=== PATIENT | male | born 1935 | race Caucasian/White ===

== ENCOUNTER 2017-07-19 05:29 | Inpatient (IN) | payer MEDICARE ==
[2017-07-19 06:03] LABS: #Basophils 0.1 thou/uL (0.0-0.2); #Lymphocytes 0.1 thou/uL (1.20-3.40); #Monocytes 0.1 thou/uL (0.11-0.59); #Neutrophils 7.2 thou/uL (1.40-6.50); %Basophils 0.8 % (0.0-1.0); %Eosinophils 0.4 % (0.0-10.0); %Lymphocytes 1.4 % (21.0-51.0); %Monocytes 1.7 % (0.0-10.0); %Neutrophils 95.7 % (42.0-75.0); Hemoglobin 10.4 g/dL (14.0-18.0); Mean Corpuscular HGB CONC 32.5 g/dL (32.0-36.0); Mean Corpuscular Hemoglobin 31.1 pg (27.0-31.0); Mean Corpuscular Volume 95.6 fl (80.0-94.0); Mean Platelet Volume 6.8 fL (7.4-10.4); Platelet Count 200 thou/uL (130-400); RBC Distribution Width 14.8 % (11.5-14.5); Red Blood Cell (RBC) Count 3.34 mill/uL (4.70-6.10); White Blood Cell (WBC) Count 7.5 thou/uL (4.8-10.8)
[2017-07-19 06:10] LABS: Actual Bicarbonate (HCO3a) 30.9 mEq/L (22-26); Base Excess (BEa) 7.1 mEq/L (0 (+/-) 2.5); CO2 Tension 40.6 mmHg (35.0-45.0); Hematocrit-ABG 28.2 % (42.0-52.0); Hemoglobin (Hb) 8.5 g/dL (14.0-18.0); O2 Tension (PaO2) 100.7 mmHg (80.0-100.0)
[2017-07-19 06:11] LABS: Analyzer IN Cardio ER; Calcium, Ionized 1.1 mmol/L (1.12-1.30); Puncture Site RRA
[2017-07-19 06:19] LABS: ALT (SGPT) 19 U/L (8-55); AST (SGOT) 27 U/L (5-34); Albumin 3.5 g/dL (3.4-4.8); Alkaline Phosphatase 119 U/L (40-150); Anion Gap 13 mmol/L (10-20); BUN (Urea Nitrogen) 22 mg/dL (8.4-25.7); Bilirubin, Total 0.9 mg/dL (0.2-1.2); CK (CPK) 65 U/L (30-200); Calc. Creatinine Clearance 0 mL/min (70-130); Calcium 9.4 mg/dL (7.8-10.44); Carbon Dioxide 31 mmol/L (23-31); Chloride 97 mmol/L (98-107); Estimated GFR-MDRD 21; Globulin 3.2 g/dL (2.4-3.5); Glucose 79 mg/dL (83-110); Lipase 21 U/L (8-78); Potassium 4.4 mmol/L (3.5-5.1); Protein, Total 6.7 g/dL (5.8-8.1); Sodium 137 mmol/L (136-145)
[2017-07-19 06:23] LABS: CKMB 1.5 ng/mL (0-6.6)
--- NOTE | 2017-07-19 07:37 | PDOC.FPRHP ---
- History of Present Illness Chief Complaint: SOB History of Present Illness: 82 yo CM presented to ED for SOB. Pt awoke at 0200 from sleep c/o SOB. Endorses some SOB at baseline with occasional nighttime awakenings, but this felt worse. Was in normal state of health prior to going to sleep except for a cough. Coughed up pinkish phlegm 5 minutes before ambulance showed up. Pt went to dialysis yesterday with removal of 1.2 kg per pt. Taking all his meds at home except anxiety and nausea med that he does not currently have. Does not require oxygen at home. States BP checked at dialysis and usually runs 140-190s systolic with higher pressures more typical. Currently, states SOB much improved on oxygen. Endorses ECHO within last year in [place]. PCP: Dr. 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 Code status: Full code ED Course: Bipap via ambulance; transitioned to 3L O2 nasal cannula in ED. 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 Daughter - DM, HTN, HLD Social: Former smoker (30-45 pack-yr hx) quit 13 yrs ago, occasional alcohol use , denies illicit drug use - Review of Systems General: reports: fatigue (No more than normal). denies: fever/chills Eyes: denies: vision changes ENT: denies: nasal congestion, rhinorrhea Respiratory: reports: cough (Blood tinged sputum), shortness of breath, exercise intolerance Cardiovascular: reports: edema (b/l LE), orthopnea. denies: chest pain, palpitation Gastrointestinal: denies: nausea, vomiting Skin: denies: rashes Musculoskeletal: denies: pain, tenderness Neurological: denies: numbness, syncope - Vital signs BP: 214/110 w/EMS 141/47 in ED HR: 87 RR: 16 Tmax: 98.3 Pox: 95% on 3L Wt: 61 kg - Physical Exam Constitutional: NAD, awake, alert and oriented HEENT: normocephalic and atraumatic, EOMI, no scleral icterus, grossly normal vision (R eye unable to be evaluated due to healing skin graft 2/2 squam cell ca excision) Neck: FROM, trachea midline Chest: no-tender to palpation, no lesions Heart: RRR, normal S1/S2 -Heart: Systolic murmur loudest over mitral valve 1+ pitting edema to ankle b/l Lungs: no respiratory distress, good air movement -Lungs: expiratory rales in all snyder Abdomen: soft, non-tender, bowel sounds present Musculoskeletal: normal structure, normal tone, ROM grossly normal Neurological: no focal deficit, CN II-XII intact -Skin: Many ak, sk, and nevi. Healing skin grafts L face over angle of the mandible and L eye Heme/Lymphatic: no unusual bruising or bleeding Psychiatric: normal mood and affect, good judgment and insight, intact recent and remote memory FMR H&P: Results - Labs Result Diagrams: 07/19/17 06:01 07/19/17 05:36 Lab results: WBC 7.5 thou/uL (4.8-10.8) 07/19/17 06:01 Hgb 10.4 g/dL (14.0-18.0) L 07/19/17 06:01 Hct 31.9 % (42.0-52.0) L 07/19/17 06:01 MCV 95.6 fl (80.0-94.0) H 07/19/17 06:01 Plt Count 200 thou/uL (130-400) 07/19/17 06:01 Neutrophils % 95.7 % (42.0-75.0) H 07/19/17 06:01 ABG pH 7.50 (7.35-7.45) H 07/19/17 06:05 ABG pCO2 40.6 mmHg (35.0-45.0) 07/19/17 06:05 ABG pO2 100.7 mmHg (80.0-100.0) H 07/19/17 06:05 Sodium 137 mmol/L (136-145) 07/19/17 05:36 Potassium 4.4 mmol/L (3.5-5.1) 07/19/17 05:36 Chloride 97 mmol/L (98-107) L 07/19/17 05:36 Carbon Dioxide 31 mmol/L (23-31) 07/19/17 05:36 BUN 22 mg/dL (8.4-25.7) 07/19/17 05:36 Creatinine 2.85 mg/dL (0.6-1.3) H 07/19/17 05:36 Glucose 79 mg/dL (83-110) L 07/19/17 05:36 Calcium 9.4 mg/dL (7.8-10.44) 07/19/17 05:36 Total Bilirubin 0.9 mg/dL (0.2-1.2) 07/19/17 05:36 AST 27 U/L (5-34) 07/19/17 05:36 ALT 19 U/L (8-55) 07/19/17 05:36 Alkaline Phosphatase 119 U/L (40-150) 07/19/17 05:36 Creatine Kinase 65 U/L (30-200) 07/19/17 05:36 CK-MB (CK-2) 1.5 ng/mL (0-6.6) 07/19/17 05:36 B-Natriuretic Peptide 4794.4 pg/mL (0-100) H 07/19/17 05:36 Serum Total Protein 6.7 g/dL (5.8-8.1) 07/19/17 05:36 Albumin 3.5 g/dL (3.4-4.8) 07/19/17 05:36 Lipase 21 U/L (8-78) 07/19/17 05:36 - Radiology Interpretation Chest x-ray Status: report reviewed by me (Mass like RUL infiltrate. Repeat CXR or CT recommended) FMR H&P: A/P - Problem List (1) Acute respiratory failure with hypoxia Current Visit: Yes Status: Acute Priority: High Code(s): J96.01 - ACUTE RESPIRATORY FAILURE WITH HYPOXIA (2) ESRD (end stage renal disease) Current Visit: Yes Status: Chronic Priority: High Code(s): N18.6 - END STAGE RENAL DISEASE (3) Hypertensive urgency Current Visit: Yes Status: Acute Priority: Medium Code(s): I16.0 - HYPERTENSIVE URGENCY (4) Elevated troponin Current Visit: Yes Status: Acute Priority: High Code(s): R74.8 - ABNORMAL LEVELS OF OTHER SERUM ENZYMES (5) HTN (hypertension) Current Visit: Yes Status: Chronic Priority: Medium Code(s): I10 - ESSENTIAL (PRIMARY) HYPERTENSION (6) Lung abnormality Current Visit: Yes Status: Acute Priority: Medium Code(s): J98.4 - OTHER DISORDERS OF LUNG (7) Elevated brain natriuretic peptide (BNP) level Current Visit: Yes Status: Acute Code(s): R79.89 - OTHER SPECIFIED ABNORMAL FINDINGS OF BLOOD CHEMISTRY (8) Respiratory alkalosis Current Visit: Yes Status: Acute Priority: Medium Code(s): E87.3 - ALKALOSIS (9) Macrocytic anemia Current Visit: Yes Status: Chronic Priority: Low Code(s): D53.9 - NUTRITIONAL ANEMIA, UNSPECIFIED (10) Cancer, skin, squamous cell Current Visit: Yes Status: Acute Priority: Low Code(s): C44.92 - SQUAMOUS CELL CARCINOMA OF SKIN, UNSPECIFIED - Plan Acute hypoxic respiratory failure - Pt came in needing CPAP, however has since been weaned to 3L NC. Pt does not use O2 at home - likely 2/2 to volume overload - Nephro, Dr Box, has been consulted from ED and plans on HD today. - Continue to monitor on tele. Hypertensive urgency - BP was 220 systolic when EMS measured, however has since resolved with nitro and is in a normal range - Pt apparently often has BP as high as 190 systolic at HD. Elevation to 220 was like dt anxiety and hypoxia - Restart home meds here, follow BP after HD today RUL lung mass on CXR - no known hx of lung mass. Will discuss further w/pt and his concerning a known hx. If this is a new finding will order CT per rads recommendation - Pt has 45 pk yr hx ESRD - Tues, Thurs, Sat - HD today HTN - restart home meds Macrocytic anemia - likely chronic 2/2 ESRD. no concern for acute bleed - Monitor CBC Elevated trop - likely demand ischemia - trend trops Elevated BNP - 2/2 to overload. - HD as above Squamous cell ca - pt being treated outpatient. s/p resection respiratory alkalosis - AGB was taken while on CPAP PPx - SCD Code Full Diet renal high protein Dispo: Pt stable. Will get HD today and reevaluate. Likely LOS 2 midnights FMR H&P: Upper Level - Pertinent history 82 yo CM with PMHx ESRD on HD and HTN presented to ED via ambulance for worsening SOB. Woke from sleep 2 hours ALMOND HULLER with sudden-onset SOB and coughing pink sputum. Hx nighttime awakenings due to SOB but felt to be worse than normal. Compliant with dialysis last performed yesterday with removal of fluid. Pt states new ankle swelling bilaterally and nephrology attempting to adjust his dialysis due to this. Does not have med list available but compliant with all meds except anxiety and nausea med he ran out of. O2 80% by EMS and put on bipap. BP 210 at home. Controlled with nitro in ED. Pt endorses 50 pound weight loss in last few months. Denies being told he has lung mass. - Pertinent findings Gen: A&Ox4, frail appearing, NAD Heart: RRR, 3/6 sys murmur loudest at apex Lungs: faint scattered rales bilaterally, no rhonchi/wheezes, good air movement Abd: NT/ND Ext: 2+ LLE edema to level of distal third of [place]on, 1+ pitting R ankle/foot; LUE AV fistula Skin: scattered ecchymosis BUE, severely edematous upper/lower R eyelid with inability to evaluate R eye, large occlusive covering over R lateral face - Plan Date/Time: 07/19/17 0734 1. Acute hypoxic respiratory failure. O2 80% with bipap requirement. Likely 2/[address] Box consulted from ED and taking to emergent dialysis for fluid removal. BNP 4794. Currently breathing comfortably on 3L nasal cannula. Admit to telemetry with expected 1-2 day stay. 2. ESRD on HD. See above. Dr. Box consulted and taking for emergent dialysis. Breathing currently improved. Await home med list from . Cr 2.85 today after dialysis yesterday. 3. HTN urgency. Currently resolved with treatment of hypoxia and nitro paste. Continue to monitor. No clear sign of end-organ dysfunction solely attributable to elevated BPs. Trend trops but likely chronic due to ESRD. Cont home meds when known. 4. R lung infiltrate. Dense mass-like RUL infiltrate up to 9cm on CXR. No signs of PNA (afebrile, no elev WBC, cough consistent with fluid overload). Will discuss with if chronic finding. CT recommended by radiology so obtain after dialysis if new finding as may be cause of hypoxia. 5. Ind troponins. Trend although likely chronic due to ESRD. Denies chest pain. 6. Elev BNP. Pt denies CHF hx although unclear. Systolic murmur present. ECHO done in last year but results unavailable. Monitor for signs of decompensated CHF; if continue to be absent will defer to PCP. 7. Anemia. Likely AofCD. Borderline high but normocytic. F/u outpt. I, Artur Jerome, have evaluated this patient and agree with findings/plan as outlined by pharmacy intern resident. Pertinent changes/additions are listed here. Attending Addendum - Attending Addendum Date/Time: 07/19/17 0019 I personally evaluated the patient and discussed the management with Dr. Martines /Queenie. I agree with the History, Examination, Assessment and Plan documented above with any addition or exceptions noted below. Patient with history of HTN and ESRD on HD presenting for awakening with acute onset shortness of breath. He had his normal HD session yesterday with adequate removal of fluid. He initially was requiring Bipap therapy to maintain normal oxygenation but was then able to be transitioned to NC in the ER. He reports now feeling somewhat improved. Exam repeated by myself and consistent with documentation by the resident. His CXR is not overly consistent with fluid overload to result in such profound hypoxia. However, he does have a 9cm RUL mass versus infiltrate. He has no evidence of PNA, and does endorse 50 pound weight loss in the last few months. He has history of tobacco abuse. I feel he likely has more of a acute on chronic hypoxic respiratory failure 2/2 this RUL mass and associated atelectasis. He is receiving HD currently and will see how that impacts his symptoms. Obtain CT w/contrast to further characterize mass and likely consult Pulm after report. Patient denies knowing the existence of this mass previously but will confirm with family if this is acute or chronic. Otherwise, continue meds for chronic conditions and await results of imaging studies.
[2017-07-19 07:49] LABS: HBSAg Index 0.14 S/CO (0-0.99); Hep B Surf Ag Non-Reactive S/CO (NonReactive)
--- NOTE | 2017-07-19 07:59 | RAD ---
CHEST 1 VIEW: HISTORY: Dyspnea. Chest pain. FINDINGS: No comparison. Cardiac silhouette is magnified and enlarged. Pulmonary vasculature is upper limits normal. Large mass-like infiltrate projecting over the right upper lobe measures up to 9.0 cm. No e vidence of pneumothorax. There is calcification in the aorta. Postoperative changes right neck. Ca rdiac monitor leads overlie the chest. IMPRESSION: 1. Dense mass-like right upper lobe infiltrate. If patient is being treated medically for pneumonia , continued radiographic followup to evaluate for resolution is recommended. Otherwise, please consi kendall CT evaluation of the chest. 2. Atherosclerosis. POS: [facility]
[2017-07-19] MEDS ORDERED: Acetaminophen 325 MG TAB PO PRN (08:04)
[2017-07-19 10:27] LABS: Troponin I 0.074 ng/mL (< 0.028)
[2017-07-19 13:35] LABS: Troponin I 0.081 ng/mL (< 0.028)
--- NOTE | 2017-07-19 16:46 | CON ---
DATE OF CONSULTATION: 07/19/2017 HISTORY OF PRESENT ILLNESS: Mr. Narvaez is an 82-year-old white male with known history of end-stage renal disease - on maintenance hemodialysis and admitted for shortness of breath. He was placed on B iPAP this morning at the ER. The feeling is that he may be in volume overload. We are consulted for next hemodialysis with this patient and for his maintenance hemodialysis. I am currently at the bed side supervising his dialysis. We are attempting about 1.5 liter fluid removal as tolerated by this patient. He was also found to have a lung lesion in right upper lobe of the lungs. Our plan is to do CT scan with and without contrast. REVIEW OF SYSTEMS: Positive for shortness of breath, no nausea, no vomiting, no headache, no chest p ain, no syncopal episode, no productive cough, no fever or chills. No abdominal pain. Appetite and energy level is fair. No medication, no melena, no hematemesis. PAST MEDICAL HISTORY: 1. History of squamous cell carcinoma on the face. 2. Hypertension 3. End-stage renal disease - on maintenance hemodialysis. PAST SURGICAL HISTORY: 1. Status post right facial surgery with skin flap. 2. Status post parotidectomy. 3. Status post AV fistula. 4. Status post cuffed dialysis catheter placement. 5. Removal of pilonidal cyst and status post PEG tube placement. MEDICATIONS: Currently on Tylenol q.4 p.r.n. SOCIAL HISTORY: The patient is . He lives in [facility]. He currently is not smoking, but did smoke heavily at one time, he quit 10 years ago. Sedentary lifestyle. Currently, no alcohol in take. ALLERGIES: No known drug allergies. TRAUMA: None. IMMUNIZATIONS: Up to date. HOSPITALIZATIONS: Please see past medical history. FAMILY HISTORY: Noncontributory. PHYSICAL EXAMINATION: VITAL SIGNS: Blood pressure 127/60, heart rate 93, respiratory rate 18, temperature 98.3, O2 sat 100 %. GENERAL: Awake, supine, comfortable, not in distress. SKIN: Adequate turgor. HEENT: He has slightly pale conjunctivae, anicteric sclerae. Palpebral area is swollen and he has a skin flap noted on the right side of the face. NECK: No neck mass, no carotid bruits, no JVD. CHEST: No deformities. LUNGS: Decreased breath sounds, no wheezing, no crackles. HEART: Normal sinus rhythm. No murmurs, no gallops, no rubs. ABDOMEN: Globular, soft, nontender, no masses. EXTREMITIES: No edema, no deformities. NEUROLOGIC: Awake and oriented to 3 spheres. Moving all extremities. No tremors, no asterixis, no ataxia. LABORATORY DATA AND IMAGING DATA: Laboratories of 07/19/2017; white count 7.5, hemoglobin 10.4. Sod ium 137, potassium 4.4, chloride 97, carbon dioxide 31, BUN 22, creatinine 2.85, glucose 79, AST 27, ALT 19, albumin 3.5, troponin I 0.081. Chest x-ray of 07/19/2017 - finding of a dense mass-like righ t upper lobe infiltrate. ASSESSMENT AND PLAN: 1. End-stage renal disease, stable. Tolerating current hemodialysis regimen. My plan is to do a 2- hour hemodialysis with fluid removal as tolerated. We will then resume back on his Monday, , and Monday hemodialysis regimen. 2. Shortness of breath, multifactorial - congestive heart failure versus? of chronic obstructive pul monary disease - fluid removal of about 1.5 liters as tolerated by the patient. 3. Mass like right upper lobe infiltrate - for CT scan with and without contrast to rule out any pos sible malignancies. Overall, agree with current management.
[2017-07-19 17:33] LABS: Troponin I 0.099 ng/mL (< 0.028)
--- NOTE | 2017-07-19 18:13 | CT ---
CT THORAX WITH IV CONTRAST 07/19/17 HISTORY: Mass-like infiltrate noted on chest x-ray. 50 lb weight loss. Shortness of breath. FINDINGS: There is a dense area of consolidation which contains air bronchograms within the right upper lobe wh ich corresponds to finding on the chest x-ray. While neoplastic process could not be excluded, this h as the appearance most suggestive of dense area of consolidation related to pneumonia, but followup e valuation to complete resolution is recommended. There is a small to moderate right and small left pleural effusions with bibasilar areas of consolida tion which may be related to passive atelectasis, but pneumonia, especially at the left lung base can not be entirely excluded. There are reticulonodular densities seen in the left lower lobe with minima l patchy parenchymal changes in the left upper lobe as well as in the right middle lobe which could b e related to focal areas of pneumonitis. Atypical pneumonia is a possibility. There is a moderate sized pericardial effusion, and the heart is enlarged. Dense vascular calcificati ons are seen in the abdominal aorta and in the coronary arteries. Multiple surgical clips are seen at the base of the right neck. There is a subcentimeter difficult to characterize hypodense lesion in the right lobe of the thyroid gland. Visualized upper abdomen demonstrates atrophic appearing kidneys, but only the superior pole of each kidney is visualized with subcentimeter too small to characterize hypodense lesions in the superior p ole left kidney. There are degenerative changes seen in the spine with vertebroplasty changes involving what appears t o be the T12 and L1 vertebral bodies. IMPRESSION: 1. Dense mass-like area of consolidation in the right upper lobe with associated air bronchogram s. While neoplastic process cannot be entirely excluded, findings are most suggestive of pneumonia. F ollow up to complete resolution is recommended. 2. Moderate right and small left pleural effusions with bibasilar areas of consolidation some of which is probably related to atelectasis, but there is greater degree of consolidation at the left l santos base which may represent pneumonia. There are reticulonodular densities in the left lower lobe wi th mild patchy parenchymal changes in the region of the lingula and right middle lobe which also may be related to areas of pneumonitis. Atypical pneumonia should be considered. 3. Moderate sized pericardial effusion with evidence of cardiomegaly. 4. Vascular calcifications. 5. Atrophy of each visualized kidney. 6. Subcentimeter difficult to characterize low density nodules in the right lobe of the thyroid gland. Thyroid ultrasound may be beneficial on a nonemergent basis. 7. As noted above, followup to complete resolution of the above described findings is recommende d. POS: [facility]
[2017-07-19] MEDS ORDERED: Vancomycin HCl 1 GM in Premix Bag 1 BAG IVPB SCH (18:30)
[2017-07-19] MEDS: Piperacillin/Tazobactam 2.25 GM in Sodium Chloride 0.9% 100 ML IVPB SCH (18:42)
--- NOTE | 2017-07-19 21:35 | CON ---
DATE OF CONSULTATION: 07/17/2017 CONSULTING PHYSICIAN: Dr. Jerome [facility]. REASON FOR CONSULTATION: Right upper lobe pneumonia. HISTORY OF PRESENT ILLNESS: The patient is an 82-year-old male who is a dialysis patient. He went to dialysis ill today. He has been coughing and having congestion for several days. He has also been having fever. Upon completion of dialysis, EMS had to be called, because the patient was too short of breath. He was brought to this facility for further evaluation. He was briefly on BiPAP, but that was stopped and he was subsequently admitted to the floor. PAST MEDICAL HISTORY: 1. End-stage renal disease requiring hemodialysis. 2. Hypertension. 3. Squamous cell carcinoma of the face requiring extensive debridement, skin flaps. 4. 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 5. PEG tube placement for dysphagia. 6. No previous history of lung cancer or tuberculosis. FAMILY MEDICAL HISTORY: Remarkable for no known illnesses. SOCIAL HISTORY: He has a [id number] history of smoking, quit about 15 years ago. Occasionally drinks alcohol. He lives in [place]. REVIEW OF SYSTEMS: Remarkable for significant weight loss secondary to the cancer. He has both odynophagia and dysphagia for solids and liquids. He has difficulty seeing out of his right eye. PHYSICAL EXAMINATION: VITAL SIGNS: Heart rate was initially 87, blood pressure 141/47, temperature 98.3, O2 sat 95% on 3 liters. GENERAL: The patient is a thin white male. Most obvious abnormality is the extensive periorbital edema around the right eye. HEENT: He has a skin flap covering most of the right side of his face between the ear and the cheek. Oropharynx is clear. NECK: Without adenopathy or JVD. LUNGS: He has crackles in the right upper lobe, left side is clear. CARDIAC: S1, S2 are regular without murmur. ABDOMEN: He has an old PEG tube in place, which appears to be poorly kept. EXTREMITIES: He has significant muscle wasting in his lower extremities. No edema noted. LABORATORY DATA: White blood cell count 7.5, hematocrit 31.9, platelet count 200. Sodium 137, potassium 4.4, chloride 97, CO2 of 31, BUN 22, creatinine 2.8 , glucose 79. Chest x-ray and CT scan demonstrate a mass-like infiltrate in the right upper lobe with air bronchograms. ASSESSMENT: Right upper lobe infiltrate with air bronchograms. Given the history, this is probably pneumonia, but requires close observation. Malignancy would have to be considered if we do not see improvement in the infiltrate with the antibiotics. Postobstructive pneumonia would also be in the differential. RECOMMENDATIONS: 1. At the current time, I would recommend IV antibiotics. I do not see any antibiotic orders at the current time. 2. He will need a followup scan. 3. If we can obtain films from [facility], it would be helpful in seeing if there was anything in the right upper lobe previously. I will be happy to follow with you. 70 minutes time was spent on this consult. Of that 70 minutes, greater than 50 % of the time was spent with the patient and/or on the patients hospital unit. SHERLYN
[2017-07-19] MEDS ORDERED: HYDROcodone/Acetaminophen 7.5/325 mg Tablet PO PRN (22:49)
[2017-07-20] MEDS: Piperacillin/Tazobactam 2.25 GM in Sodium Chloride 0.9% 100 ML IVPB SCH ×2 (02:39→08:18)
[2017-07-20 06:17] LABS: pH, Arterial 7.11 (7.35-7.45)
[2017-07-20 06:18] LABS: Actual Bicarbonate (HCO3a) 41.5 mEq/L (22-26); Base Excess (BEa) 9.3 mEq/L (0 (+/-) 2.5); CO2 Tension 134.2 mmHg (35.0-45.0); Hematocrit-ABG 28.6 % (42.0-52.0); Hemoglobin (Hb) 9.1 g/dL (14.0-18.0); O2 Tension (PaO2) 101.4 mmHg (80.0-100.0)
[2017-07-20 06:19] LABS: Calcium, Ionized 1.3 mmol/L (1.12-1.30); Puncture Site RRA
[2017-07-20] MEDS ORDERED: Sodium Bicarb 50 MEQ/50 ML Abboject 8.4% SYRINGE IVP SCH (06:30)
[2017-07-20] MEDS ORDERED: Norepinephrine 8 MG/0.9% NS 250 ML ONE (07:11)
--- NOTE | 2017-07-20 07:30 | PDOC.EVN ---
Event Note - Event Note Event Note: Attending CC Note Responded to Oliverio Arnold call at about 5:45am. Patient with Bradycardia then PEA and respiratory failure. ACLS therapy provided by team. ET intubation via glidoscope. See Oliverio arnold docuemtnation and resident note for details. ROSC with Sinus tach achieved. Patient transferred to CCU. Post intubation ABG shows resp acidosis and significant Aa gradient. Right femoral CVC placed under ultrasound guidance. Diff Dx is CVA, PE, and MA. CT of head, CTA of chest, labs, follow up ABG pending. Levophed initiated for hypotension. Family notified. End CC time 7:00am. Total CC time 75min.
[2017-07-20 07:36] LABS: Actual Bicarbonate (HCO3a) 24.7 mEq/L (22-26); CO2 Tension 58.3 mmHg (35.0-45.0); Hemoglobin (Hb) 9.4 g/dL (14.0-18.0); O2 Tension (PaO2) 145.9 mmHg (80.0-100.0); pH, Arterial 7.25 (7.35-7.45)
[2017-07-20 07:37] LABS: ALV-art Gradient 489.225 (0-20); Calcium, Ionized 1.3 mmol/L (1.12-1.30); Puncture Site LF
[2017-07-20] MEDS ORDERED: Vasopressin 40 UNIT, Admixture Fee 1 EACH in Sodium Chloride 0.9% 100 ML IV SCH (07:45)
[2017-07-20 07:49] LABS: Hemoglobin 9.3 g/dL (14.0-18.0); Mean Corpuscular HGB CONC 31.1 g/dL (32.0-36.0); Mean Corpuscular Hemoglobin 31.1 pg (27.0-31.0); Mean Corpuscular Volume 99.7 fl (80.0-94.0); Mean Platelet Volume 8.3 fL (7.4-10.4); Platelet Count 160 thou/uL (130-400); RBC Distribution Width 14.6 % (11.5-14.5); White Blood Cell (WBC) Count 0.8 thou/uL (4.8-10.8)
[2017-07-20] MEDS ORDERED: Sodium Chloride 0.9% 1,000 ML IV SCH ×2 (08:00)
[2017-07-20 08:09] LABS: Troponin I 0.298 ng/mL (< 0.028)
[2017-07-20 08:10] LABS: Band 8 % (5-11); Eosinophils 8 % (0-10); Hypochromia SLIGHT = 6-15 cells (100X) (0-5/hpf); Lymphocytes 36 % (21-51); MDiff Complete? YES; Metamyelocyte 20 % (0-0); Monocytes 8 % (0-10); Myelocyte 8 % (0-0); Neutrophil 12 % (42-75); PLT Morphology Comment Appears Adequate; Polychromasia SLIGHT = 2-3 cells (100X) (0-2/hpf); Vacuoles SLIGHT
[2017-07-20 08:11] LABS: ALT (SGPT) 40 U/L (8-55); AST (SGOT) 65 U/L (5-34); Albumin 2.8 g/dL (3.4-4.8); Alkaline Phosphatase 69 U/L (40-150); Anion Gap 24 mmol/L (10-20); BUN (Urea Nitrogen) 28 mg/dL (8.4-25.7); Calc. Creatinine Clearance 18 mL/min (70-130); Calcium 9.8 mg/dL (7.8-10.44); Carbon Dioxide 25 mmol/L (23-31); Chloride 97 mmol/L (98-107); Estimated GFR-MDRD 25; Globulin 2.6 g/dL (2.4-3.5); Glucose 62 mg/dL (83-110); Potassium 4.5 mmol/L (3.5-5.1); Protein, Total 5.4 g/dL (5.8-8.1); Sodium 141 mmol/L (136-145)
[2017-07-20 08:12] LABS: CKMB 8.3 ng/mL (0-6.6)
--- NOTE | 2017-07-20 08:13 | PRG ---
DATE OF SERVICE: 07/20/2017 Thirty-five minutes critical care time. SUBJECTIVE: The patient had a code blue arrest this morning. Apparently, he developed bradycardia a nd then pulseless electrical activity, from what I can tell he received several rounds of medications and CPR before achieving return of spontaneous circulation. He has received no sedation. He is cur rently in the CCU intubated on mechanical ventilation. I cannot get him to respond to any stimulatio n. PHYSICAL EXAMINATION: VITAL SIGNS: Heart rate in the 80s, blood pressure 84/43, respiratory rate 30, O2 sat 100%. HEENT: He has significant edema and redness around his right eye. Left pupil is 2 mm, unreactive. Oropharynx, endotracheal tube in place. NECK: No adenopathy or JVD. LUNGS: Coarse breath sounds bilaterally. CARDIOVASCULAR: S1, S2 regular. ABDOMEN: Soft, nontender. EXTREMITIES: No clubbing or cyanosis. He has severe muscle wasting. LABORATORY DATA AND X-RAY FINDINGS: CBC is pending. ABG, pH 7.25, pCO2 58, pO2 145, this on SIMV ra te 30, tidal volume 400, PEEP 5, pressure support 10, FIO2 100%. His chemistry is pending noted hypo glycemia earlier. Cultures are growing gram negative rods. His chest x-ray shows profound increase in the right upper lobe infiltrate compared to yesterday even to the point where there may be some co llapse. ASSESSMENT: 1. Status post cardiopulmonary arrest secondary to pneumonia. 2. Hypoglycemia. 3. Right upper lobe pneumonia. 4. Acute respiratory failure requiring mechanical ventilation. 5. History of end-stage renal disease requiring hemodialysis. 6. Head and neck cancer, squamous cell carcinoma. PLAN: 1. Vasopressor support. 2. Bolus IV fluids. 3. Bronchoscopy to rule out endobronchial obstruction, right upper lobe. 4. Continue antibiotic support. Given these gram negative rods, I would go ahead and double cover h im until we have a definite identification. This is because he is a dialysis patient and is exposed to drug resistant pathogens on daily basis. 5. Discussed with his . Prognosis appears to be very poor.
[2017-07-20] MEDS ORDERED: Dextrose 50% Abboject 50 ML SYRINGE ONE ×3 (08:17→15:01)
[2017-07-20] MEDS: Dextrose 50% Abboject 50 ML SYRINGE ONE ×2 (08:18→10:19)
--- NOTE | 2017-07-20 08:30 | PDOC.EVN ---
Event Note - Event Note Event Note: Responded to Code Blue at apprx 0540. Upon arrival CPR was in progress with chest compression and bag mask ventilation, pt was on monitor and was in PEA. Per nursing pt was see on tele to be bradycardic to the 40s, the was then found to be unresponsive. BG check at the time of my arrival ws 16, 1 amp of D50 was given. At first 2 minute pulse check pt continued to be in pea, epi was pushed and CPR resumed. This continued for 5-6 cycles. Pt was intubated during CPR via glidescope and placement verified by color change, rise and fall of chest, and equal breath sounds. Labs were unable to be drawn due to inability to access. At apprx the 4th cycle of CPR pulse check asystole was verified by bedside US. On the next recheck pt was found to again be in PEA. In addition to epi, bicarb and atropine were given. By the 6th administration of epi a pulse check revealed ROSC, pt remained unresponsive. Pt was then transferred to the ICU. CVC was ordered for IV access and to draw labs which included Trop/CKMB. Family was notified. Crit care was consulted upon arrival to CCU
--- NOTE | 2017-07-20 08:34 | PDOC.EVN ---
Event Note - Event Note Event Note: INDICATION: ROSC following cardiac arrest with need for BP support PROCEDURE MAIL PROCESSING EQUIPMENT MECHANIC: Thong Martines DO; Shyam Guerrero MD ATTENDING PHYSICIAN: Rui Hurtado MD in attendance Ultrasound Used: Yes CONSENT: Consent was implied dt emergent need and full code status PROCEDURE SUMMARY: My hands were washed immediately prior to the procedure. I wore a surgical cap, mask with protective eyewear, sterile gown and sterile gloves throughout the procedure. The right inguinal region was prepped using chlorhexidine scrub and draped in sterile fashion using a three quarter sheet drape and sterile towels. The femoral pulse was identified. Using ultrasound guidance throughout the procedure, the introducer needle was inserted Medial to the femoral artery, inferior to the inguinal crease and into the Femoral vein. Venous blood was withdrawn. The syringe was removed and a guidewire was advanced into the introducer needle. A small incision was made at the skin surface with a scalpel and the introducer needle was exchanged for a dilator over the guidewire. After appropriate dilation was obtained, the dilator was exchanged over the wire for a triple lumen central venous catheter. The wire was removed and the catheter was sutured in place at 20 cm. A sterile dressing was placed over the catheter at the insertion site. The patient tolerated the procedure without any hemodynamic compromise. At time of procedure completion, all ports aspirated and flushed properly. Estimated blood loss is minimal.
--- NOTE | 2017-07-20 08:39 | PDOC.FM ---
- Subjective Subjective: This is a 82 yo M w/hx of ESRD, CAD, HTN admitted for CAP and volume overload. He had HD yesterday with Over night pt was had a code blue with ROSC established. Pt was intubated and had R femoral CVC placed. He was then transferred to ICU. Currently he is needing both levophed and vasopressin for pressure support. - Objective MAR Reviewed: Yes Vital Signs & Weight: Vital Signs (12 hours) Temp Pulse Resp BP BP Pulse Ox 07/20/17 07:26 114 H 105/56 L 07/20/17 06:25 108 H 109/55 L 07/20/17 04:05 100 07/20/17 04:00 95 20 149/69 H 100 07/20/17 00:05 98 07/20/17 00:00 97.7 F 95 18 153/70 H 98 Weight Weight 53.388 kg I&O: 07/19/17 07/20/17 07/21/17 06:59 06:59 06:59 Intake Total 480 Balance 480 Result Diagrams: 07/20/17 07:31 07/20/17 07:31 <Thong Martines - Last Filed: 07/20/17 08:35> - Objective Vital Signs & Weight: Vital Signs (12 hours) Temp Pulse Resp BP BP Pulse Ox 07/20/17 11:26 100 85/46 L 07/20/17 11:00 97.6 F 07/20/17 09:02 95.4 F L 07/20/17 08:00 97.6 F 98 30 H 95 07/20/17 07:26 114 H 105/56 L 07/20/17 06:25 108 H 109/55 L 07/20/17 04:05 100 07/20/17 04:00 95 20 149/69 H 100 07/20/17 00:05 98 07/20/17 00:00 97.7 F 95 18 153/70 H 98 Weight Weight 53.388 kg Most Recent Monitor Data Heart Rate from ECG 102 NIBP 85/42 NIBP BP-Mean 56 Respiration from ECG 37 SpO2 92 I&O: 07/19/17 07/20/17 07/21/17 06:59 06:59 06:59 Intake Total 480 1200 Output Total 0 Balance 480 1200 Result Diagrams: 07/20/17 07:31 07/20/17 07:31 <Tommy Peace - Last Filed: 07/20/17 11:50> Phys Exam - Physical Examination Pt is currently intubated Pupils fixed and dilated Neck: no JVD Expiratory rales throughout Cardiovascular: RRR, no significant murmur Gastrointestinal: soft, no distention, positive bowel sounds Musculoskeletal: no edema Corneal reflex absent, does not withdraw from pain Skin: no rash, normal turgor <Thong Martines - Last Filed: 07/20/17 08:35> Dx/Plan (1) Acute respiratory failure with hypoxia Code(s): J96.01 - ACUTE RESPIRATORY FAILURE WITH HYPOXIA Status: Acute (2) ESRD (end stage renal disease) Code(s): N18.6 - END STAGE RENAL DISEASE Status: Chronic (3) Elevated troponin Code(s): R74.8 - ABNORMAL LEVELS OF OTHER SERUM ENZYMES Status: Acute (4) HTN (hypertension) Code(s): I10 - ESSENTIAL (PRIMARY) HYPERTENSION Status: Chronic (5) Lung abnormality Code(s): J98.4 - OTHER DISORDERS OF LUNG Status: Acute (6) Elevated brain natriuretic peptide (BNP) level Code(s): R79.89 - OTHER SPECIFIED ABNORMAL FINDINGS OF BLOOD CHEMISTRY Status : Acute (7) Respiratory alkalosis Code(s): E87.3 - ALKALOSIS Status: Acute (8) Macrocytic anemia Code(s): D53.9 - NUTRITIONAL ANEMIA, UNSPECIFIED Status: Chronic (9) Cancer, skin, squamous cell Code(s): C44.92 - SQUAMOUS CELL CARCINOMA OF SKIN, UNSPECIFIED Status: Acute (10) Hypertensive urgency Code(s): I16.0 - HYPERTENSIVE URGENCY Status: Resolved (11) Hypotension Status: Acute (12) Bacteremia Code(s): R78.81 - BACTEREMIA Status: Acute - Plan Plan: Acute hypoxic respiratory failure - Pt now intubated after code this am. is not overbreathing vent. unsedated - pt had HD yesterday and currently appears to be euvolemic. Respiratory failure dt PNA vs mass in RUL id'd on CXR. Repeat CXR today appears to be likely RUL PNA. Given location there is concern for aspiration, pt on Zosyn, Vanc, Levaquin RUL PNA - abx as above Hypotension - pt currently on levophed 18 and vasopressin 6. MAP in mid 60s - continue pressure support as needed. Bacteremia - Gram neg rods on Cx - PT has very little urinary output. Will attempt to get urine sample for UA to id source. Current abx will cover likely pathogens ESRD - Tues, Thurs, Sat - HD today. Dr Box consulted. HTN - restart home meds Macrocytic anemia - likely chronic 2/2 ESRD. no concern for acute bleed - Monitor CBC Elevated trop - likely demand ischemia - trend trops Elevated BNP - 2/2 to overload. - HD as above Squamous cell ca - pt being treated outpatient. s/p resection respiratory alkalosis - AGB was taken while on CPAP <Thong Martines - Last Filed: 07/20/17 08:35> (1) Acute respiratory failure with hypoxia Code(s): J96.01 - ACUTE RESPIRATORY FAILURE WITH HYPOXIA Status: Acute (2) ESRD (end stage renal disease) Code(s): N18.6 - END STAGE RENAL DISEASE Status: Chronic (3) Hypertensive urgency Code(s): I16.0 - HYPERTENSIVE URGENCY Status: Resolved (4) Elevated troponin Code(s): R74.8 - ABNORMAL LEVELS OF OTHER SERUM ENZYMES Status: Acute (5) HTN (hypertension) Code(s): I10 - ESSENTIAL (PRIMARY) HYPERTENSION Status: Chronic (6) Lung abnormality Code(s): J98.4 - OTHER DISORDERS OF LUNG Status: Acute (7) Elevated brain natriuretic peptide (BNP) level Code(s): R79.89 - OTHER SPECIFIED ABNORMAL FINDINGS OF BLOOD CHEMISTRY Status : Acute (8) Respiratory alkalosis Code(s): E87.3 - ALKALOSIS Status: Acute (9) Macrocytic anemia Code(s): D53.9 - NUTRITIONAL ANEMIA, UNSPECIFIED Status: Chronic (10) Cancer, skin, squamous cell Code(s): C44.92 - SQUAMOUS CELL CARCINOMA OF SKIN, UNSPECIFIED Status: Acute <Tommy Peace - Last Filed: 07/20/17 11:50> Attending Addendum - Attending Addendum Date/Time: 07/20/17 1422 I personally evaluated the patient and discussed the management with Dr. Martines. I agree with the History, Examination, Assessment and Plan documented above with any addition or exceptions noted below. Patient with cardiovascular collapse overnight with ROSC after CPR and code blue. He is intubated and has no reflexes or response on the ventilator without sedation. Pupils are currently fixed. He is on antibiotics for large R sided pneumonia, and is septic due to large drop in white count and presence of fevers. He does not seem to be mounting a response to infection. He is showing extreme hypoglycemia despite D50 boluses, possibly indicated liver dysfunction and portending a poor prognosis. We will continue with aggressive treatment at current time as well as Respiratory and BP support. If does not show evidence of meaningful recovery in the next few hours to overnight, will need brain perfusion study to confirm severe anoxic brain injury versus brain . Pulm and Nephro on board. <Tommy Peace - Last Filed: 07/20/17 11:50>
[2017-07-20] MEDS ORDERED: Prevnar 13-Val Conj/PF 0.5 ML SYRINGE IM ONE (09:00)
--- NOTE | 2017-07-20 09:52 | PRG ---
DATE OF SERVICE: 07/20/2017 SUBJECTIVE: Mr. Narvaez is an 82-year-old white male with ESRD, squamous cell cancer, and being follo wed by the [facility] for his maintenance hemodialysis. Early this morning, the patient was noted to be in severe hypoglycemia. In addition, he went into cardiorespiratory arrest. CPR was said to have been done. He has been transferred to the ICU. He is currently on several pressor support. Du e to the low blood pressure I have decided to hold off today's dialysis. PHYSICAL EXAMINATION: VITAL SIGNS: Blood pressure is now 78/53, heart rate 59, respiratory rate 18, pulse ox is 82%. Curr ently intubated. GENERAL: He is unresponsive, intubated on ventilator support. SKIN: Adequate turgor. HEENT: Slightly pale conjunctivae, anicteric sclerae. NECK: No neck mass, no carotid bruits, no JVD. CHEST: No deformities. LUNGS: Decreased breath sounds. HEART: Normal sinus rhythm. No murmur, no gallops, no rubs. ABDOMEN: Globular, soft, nontender, no masses. EXTREMITIES: No edema, no deformities. MEDICATIONS: 07/20/2017 - Reviewed. LABORATORY: 07/20/2017 - Sodium 141, potassium 4.5, chloride 97, carbon dioxide 25, BUN 28, creatini ne 2.47. Troponin I 0.29, albumin 2.8, calcium is 9.8, white count 0.8, hemoglobin 9.3, hematocrit 2 9.9. ASSESSMENT AND PLAN: 1. Leukopenia. Rule out sepsis. The patient is on empiric IV antibiotics. 2. End-stage renal disease, due to the low blood pressure we will hold off dialysis today. 3. Borderline anemia. We will simply observe this. 4. Status post cardiorespiratory arrest - supportive care. I had a long discussion with the family. Holding dialysis for today until blood pressure is much bet ter. Overall, prognosis is poor. Continue supportive care.
--- NOTE | 2017-07-20 10:09 | RAD ---
PORTABLE SUPINE CHEST: Date: 07/20/17 HISTORY: Post intubation follow-up. COMPARISON: 07/19/17. FINDINGS/IMPRESSION: ET tube is in place. The tip is just above the michelle and could probably be slightly retracted. There is now dense opacification of the right upper lobe, which has progressed when compared to yeste bruno's exam. Left lung shows patchy infiltrate in the left lower lobe, incompletely evaluated. There is also hazy infiltrate and/or atelectasis in the right lower lobe and probable right effusion, which is incompletely evaluated. POS: [facility]
--- NOTE | 2017-07-20 10:13 | RAD ---
SINGLE VIEW ABDOMEN: Date: 07/20/17 COMPARISON: None. HISTORY: Respiratory failure. Intubated patient with possible stroke. Evaluate central venous catheter placeme nt. FINDINGS: Single view of the abdomen shows a nonspecific, nonobstructed bowel gas pattern. Air is seen in the c olon. There is a right-sided central venous catheter with its tip near the upper aspect of the sacrum , likely within the common iliac vein. Vertebroplasty cement is seen in the spine. IMPRESSION: Catheter placement as above. POS: [facility]
--- NOTE | 2017-07-20 10:34 | OP ---
DATE OF PROCEDURE: 07/20/2017 SURGEON: Dr. Keshav Gilmore PROCEDURE: Bronchoscopy. PREOPERATIVE DIAGNOSIS: Right upper lobe collapse. POSTOPERATIVE DIAGNOSIS: No evidence of endobronchial lesion. DESCRIPTION OF PROCEDURE: The procedure was done at the patient's bedside. He was on mechanical barry tilation prior to the procedure. An Olympus bronchoscope was placed through the patient's endotrache al tube while he was on 100% FiO2. I did a quick look at the right upper lobe and saw no evidence of endobronchial obstruction or mucus. Scattered edema noted bilaterally. I could not do a complete e valuation because the patient quickly desaturated. The procedure was terminated prematurely secondar y to desaturation.
[2017-07-20] MEDS ORDERED: Atropine Sulfate 1 mg/10 ml Syringe ONE (11:00)
[2017-07-20] MEDS ORDERED: Sodium Bicarb 50 MEQ/50 ML Abboject 8.4% SYRINGE ONE (11:00)
[2017-07-20] MEDS ORDERED: EPINEPHrine 1 MG/10 ML Abboject SYRINGE ONE (11:00)
[2017-07-20] MEDS ORDERED: Calcium Chloride 1 GM/10 ML Abboject SYRINGE ONE (11:00)
[2017-07-20] MEDS ORDERED: Dextrose 25% Abboject 10 ML SYRINGE ONE (11:00)
[2017-07-20] MEDS ORDERED: Dextrose 5 %-0.45 % NaCl 1,000 ML IV SCH (12:00)
--- NOTE | 2017-07-20 13:33 | CT ---
CT BRAIN WITHOUT CONTRAST: Indication: Concern for CVA. Comparison: None. FINDINGS: There is generalized cerebral and cerebellar atrophy. There is mild chronic small vessel white matter ischemic change. No definite acute infarct, hemorrhage, or hydrocephalus is present. There is a larg e soft tissue mass involving the right orbit extending external to the right orbit measuring approxim ately 7.8 x 4 cm in size. This causes extreme mass effect on the right aspect of the globe and right optical nerve. Portions of the mass lesion appear slightly cystic in nature. Would recommend ophthalm ology consultation. There is a mucous retention cyst and mucosal thickening within both maxillary sin uses. IMPRESSION: 1. No acute intracranial abnormality. 2. Mild chronic small vessel white matter ischemic change. 3. Large soft tissue mass with cystic components involving conal and extraconal space of the right la teral orbit suspicious for malignancy. Ophthalmology consultation is recommended. POS: [facility]
[2017-07-20 13:41] VITALS: BMI 17.4
--- NOTE | 2017-07-20 14:04 | CT ---
CTA OF THE THORAX UTILIZING IV CONTRAST AND PE PROTOCOL AND 3D REFORMATTED IMAGING: COMPARISON: Recent CT of the thorax dated 07/19/17. FINDINGS: No definite central or segmental pulmonary embolus is demonstrated. There is worsening consolidation of the right lung as well as the left lower lobe suspicious for worsening pneumonia. There is a sma ll right pleural effusion and a tiny left pleural effusion present. There is cardiomegaly which is s imilar. There are scattered vascular calcifications. There are enlarged lymph nodes within the medi astinum which are stable. The patient is intubated. Visualized upper abdomen reveals no definite ac jerrod abnormality. There is slight nodular contour of the liver suspicious for changes of an underlyin g cirrhosis. There are compression abnormalities with vertebroplasty change involving T12 and L1. There is diffus e osteopenia. IMPRESSION: 1. No central or segmental pulmonary embolus demonstrated. 2. Worsening right lung and lower left lower lobe pneumonia. 3. Small right pleural effusions, right greater than left. 4. Stable mediastinal lymphadenopathy. 5. Other chronic findings. POS: [facility]
[2017-07-20] MEDS ORDERED: Acetaminophen 650 MG Suppository PR PRN (14:56)
[2017-07-20 15:25] VITALS: BP 87/48
[2017-07-20 16:04] VITALS: TEMP 99.6
[2017-07-20] MEDS ORDERED: ISOVUE-370 76%-LOCM 1 ML ONE (16:23)
[2017-07-20] MEDS ORDERED: Sodium Chloride 154 MEQ in Dextrose 10% in Water 1,000 ML IV SCH (16:30)
--- NOTE | 2017-07-20 16:56 | PDOC.EVN ---
Event Note - Event Note Event Note: Called to bedside after patient went into asystole and did not recover. Code status was just recently changed to DNR after family discussion with Dr. Gilmore. No CPR or medications given. I pronounced the patient at 1627. Physical exam: HEENT: pupils fixed and dilated CV: no pulse, no auscultated heart sounds Resp: no spontaneous respirations Neuro: no withdrawal to painful stimuli TOD: 1627 Family at bedside. Questions answered. Will begin postmortem care.
[2017-07-20] MEDS ORDERED: Vancomycin HCl 500 MG in Sodium Chloride 0.9% 100 ML IVPB SCH (21:00)
--- NOTE | 2017-07-21 09:02 | PRG ---
DATE OF SERVICE: 07/20/2017 The patient's blood pressures continued to spiral lower throughout the afternoon. He is now not oxygenating well despite being on 100% FiO2. His was at the bedside. I spoke to her with nurse, Thong, witnessing. I told her that I thought we were fighting a losing stevenson and that he was likely to pass away. I told her that I have recommended that we not do CPR or shock or medical treatment in the event of a cardiac arrest. She agreed with this. Based on this, I am putting a DNR order on the chart, but we are continuing present care otherwise. She understands that the prognosis is poor. SHERLYN
--- NOTE | 2017-07-21 09:30 | DS-2 ---
ADMISSION DATE: 07/19/2017 DISCHARGE DATE: 07/20/2017 ATTENDING: Tommy Peace M.D. RESIDENT: Thong Martines DO. TIME OF : 1627 hours. CAUSE OF : 1. Escherichia coli bacteremia. 2. Right upper lung pneumonia. 3. Acute hypoxic respiratory failure SECONDARY DIAGNOSES: Hypertensive urgency, end-stage renal disease, squamous cell cancer, chronic macrocytic anemia, squamous cell skin cancer. HOSPITAL COURSE: This is an 82-year-old male who presented to the emergency room with shortness of breath after being woken in the middle of the night due to acute onset shortness of breath. He required BiPAP in the ambulance and was transitioned over to 3 liters nasal cannula in the ED. He did not require oxygen at home. The patient typically had dialysis on Monday, , and Monday, and had been to dialysis the day before where they removed approximately 1.2 kilograms per the patient. It was also noted in the emergency room, at the time of admission that, the patient requirements for hypertensive urgency and had a systolic blood pressure in the 220 range. He said he typically runs anywhere between 140 and 190 systolic more often in the 190 than 140. At the time of admission, he denied any chest pain and complained mostly of shortness of breath, and cough. Nephrology was consulted from the ED due to concern for volume overload given the new O2 requirement and elevated BNP. Nephrology, Dr. Box, was consulted from the emergency room and the decision was made to emergently dialyzed the patient. X-ray at the time of admission found a dense mass-like right upper lobe infiltrate with a recommendation for a CT or continued radiographic followup if the patient were to be treated for pneumonia. Upon evaluation, it was decided to do a CT to help differentiate between mass and infection. The patient did not have a white count or fever, but did have a history of cancer. The CT result was less concerning for mass and more concerning for a pneumonia. Pulmonology was consulted and decision was made to start the patient on antibiotics. During dialysis on the day of admission, the patient had approximately 1.8 liters of fluid taken off. The patient remained hemodynamically stable after dialysis. Approximately 5:30 the following morning, a code blue was called as the patient was found to be unresponsive. Per telemetry, patient was seen to become bradycardic down into the 40s prior to becoming unresponsive. CPR was provided for 6-7 cycles with multiple rounds of epinephrine, bicarbonate, D50, and atropine. Blood glucose was approximately 16 at the onset of the code. Throughout the majority of the code patient was in PEA with apprx 2 minutes of asystole by ultrasound. Patient was emergently intubated during the code with placement was verified during the code by equal rise and fall of the chest, breath sounds bilaterally and after via x-ray. ROSC was eventually obtained and the patient was moved in the ICU. In the emergency room, a right femoral central line was placed with radiographic verification of placement. The patient was given multiple fluid boluses to help support blood pressure in addition to levophed and vasopressin. A bronchoscopy was attempted; however due to early desaturation during the procedure, the procedure was discontinued. Throughout the day it was difficult to maintain the patient's blood sugar above 60 and the patient required 2 more amps of D50 while on a D5 half normal saline drip. Even with IV dextrose, the blood glucose continued to drop. Later in the day, conversation with the family between the roll filler and decided that should the patient code again, he should be allowed to pass without resuscitation. Soon thereafter, the patient was noted to be in asystole. Time of was 1627. MTDD
--- NOTE | 2017-07-26 08:10 | PQF ---
Vaughn NarvaezTommy [id number] CLINICAL DOCUMENTATION CLARIFICATION FORM: POST DISCHARGE Addendum to original discharge summary date: 07/20/2017 DATE: 07/26/17 ATTN: Dr. Peace Please exercise your independent, professional judgment in responding to the clarification form. Clinical indicators are provided on the bottom of this form for your review Please check appropriate box(es): [ ] Escherichia Coli Sepsis due to (please specify cause) [ ] Severe Escherichia Coli sepsis with acute organ dysfunction of: (Examples: respiratory failure, encephalopathy, acute kidney failure, other) [ X ] Escherichia Coli Bacteremia [ ] Other diagnosis (please specify) [ ] Unable to determine In addition, please specify: Present on Admission (POA): [ X] Yes [ ] No [ ] Unable to determine For continuity of documentation, please document condition throughout progress notes and discharge summary. Thank You. CLINICAL INDICATORS - SIGNS / SYMPTOMS / LABS Per 07/20 family medicine progress note: Bacteremia. Gram neg rods on Cx. He is on antibiotics for large R sided pneumonia and is septic due to large drop in white count and presence of fevers. Per 07/20 nephrology progress note: Leukopenia. Rule out sepsis. Per summary: Escherichia coli bacteremia. Positive blood cultures for Escherichia coli. RISK FACTORS (per progress notes/discharge summary) Bacteremia. Pneumonia. TREATMENTS: (per progress notes/medications) Blood cultures IV Vancomycin. IV Zosyn. IV fluids. Vasopressors--Levophed. (This form is maintained as a part of the permanent medical record) 2014 [employer]. All Rights Reserved Citlaly [email or web address] [phone] MTDD
--- NOTE | 2017-08-18 14:58 | EKG ---
Test Reason : SOB Blood Pressure : / mmHG Vent. Rate : 090 BPM Atrial Rate : 090 BPM P-R Int : 136 ms QRS Dur : 090 ms QT Int : 376 ms P-R-T Axes : 078 071 043 degrees QTc Int : 459 ms Normal sinus rhythm Nonspecific ST and T wave abnormality Abnormal ECG Confirmed by MARISELA NORTON, GRICELDA ([id number]), video editor YONATAN VENCES ([id number]) on 08/18/2017 2:57:33 PM Referred By: EZEKIEL ANTONIO Confirmed By:GRICELDA ANTONIO MD
== END 2017-07-20 16:27 | disposition expired | DRG 208 ==
LOC: ERS 05:29 → EDBD 05:29 → 2NO 08:06 → CCU 07-20 06:14
PROVIDERS: ADMIT Student in an Organized Health Care Education/Training Program; ATTEND Student in an Organized Health Care Education/Training Program
PROC: 5A1D70Z Performance of Urinary Filtration, Intermittent, Less than 6 Hours Per Day (ICD-10-PCS; 2017-07-19)
PROC: 5A09357 Assistance with Respiratory Ventilation, Less than 24 Consecutive Hours, Continuous Positive Airway Pressure (ICD-10-PCS; 2017-07-19)
PROC: 0BJ08ZZ Inspection of Tracheobronchial Tree, Via Natural or Artificial Opening Endoscopic (ICD-10-PCS; principal; 2017-07-20)
PROC: 5A1935Z Respiratory Ventilation, Less than 24 Consecutive Hours (ICD-10-PCS; 2017-07-20)
PROC: 5A12012 Performance of Cardiac Output, Single, Manual (ICD-10-PCS; 2017-07-20)
PROC: 0BH17EZ Insertion of Endotracheal Airway into Trachea, Via Natural or Artificial Opening (ICD-10-PCS; 2017-07-20)
PROC: 06HM33Z Insertion of Infusion Device into Right Femoral Vein, Percutaneous Approach (ICD-10-PCS; 2017-07-20)
DX: J96.01 Acute respiratory failure with hypoxia (principal); J18.9 Pneumonia, unspecified organism; N18.6 End stage renal disease; I12.0 Hypertensive chronic kidney disease with stage 5 chronic kidney disease or end stage renal disease; I24.8 Other forms of acute ischemic heart disease; E87.3 Alkalosis; E87.2 Acidosis; R78.81 Bacteremia; I46.8 Cardiac arrest due to other underlying condition; D53.9 Nutritional anemia, unspecified; C44.320 Squamous cell carcinoma of skin of unspecified parts of face; E16.2 Hypoglycemia, unspecified; I16.0 Hypertensive urgency; Z99.2 Dependence on renal dialysis; B96.20 Unspecified Escherichia coli [E. coli] as the cause of diseases classified elsewhere; Z66 Do not resuscitate; Z87.891 Personal history of nicotine dependence
CPT/HCPCS: 36415; 36416; 70450; 71045; 71260; 71275; 74018; 80053; 82553; 82805; 83690; 83880; 84484; 85025; 87040; 87077; 87149; 87186; 87340; 90935; 93005; 94002; 94660; 94760; G0257; J0171; J0461; J1956; J2543; J3370; J7050; J7070